=== PATIENT | female | born 1965 | race African-American/Black ===

== ENCOUNTER 2021-03-16 | Emergency (ER) | payer OTHER, BC | END 2021-03-16 14:50 | disposition home or self-care (01) | DRG 556 | DX: M79.672 Pain in left foot (principal); W51.XXXA Accidental striking against or bumped into by another person, initial encounter; Y92.89 Other specified places as the place of occurrence of the external cause; Y99.0 Civilian activity done for income or pay ==

== ENCOUNTER 2023-04-18 19:47 | Emergency (ER) | payer BC ==
[2023-04-18] VITALS (8 sets, daily range): BP systolic 142–180; BP diastolic 68–93
[~2023-04-18] VITALS: Ht 175.3 cm; Wt 327.0 kg
[2023-04-18 20:39] LABS: URINE BILIRUBIN - DIPSTICK NEGATIVE (NEGATIVE); URINE BLOOD DIPSTICK NEGATIVE (NEGATIVE); URINE COLOR YELLOW; URINE GLUCOSE - DIPSTICK NEGATIVE (NEGATIVE); URINE KETONE NEGATIVE (NEGATIVE); URINE LEUK ESTERASE NEGATIVE (NEGATIVE); URINE PROTEIN - DIPSTICK NEGATIVE (NEG-TRACE); URINE SPECIFIC GRAVITY <=1.005; URINE UROBILINOGEN - DIPSTICK 0.2 E.U./dL (0.2)
[2023-04-18 20:40] LABS: URINE NITRITE - DIPSTICK NEGATIVE (Negative)
[2023-04-18 21:20] LABS: BASO% 0.4 % (0-3); EOS% 4.3 % (0-8); IMMATURE GRANULOCYTES 0.1 % (0.0-5.0); LYMPH% 40.5 % (15-41); MEAN CORPUSCULAR HGB 28.3 pG CALC (26.0-32.0); MEAN CORPUSCULAR HGB CONC 31.6 g/dL CAL (32.0-36.0); MONO% 8.4 % (2-13); NEUT# 3.2 thou/uL (2.00-7.15); NEUT% 46.3 % (42-76); RED BLOOD COUNT 4.6 mill/uL (4.20-5.60); RED CELL DISTRI WIDTH 14.3 % (11.5-15.5)
[2023-04-18 21:24] LABS: HEMATOCRIT 41.2 % (37.0-47.0)
[2023-04-18 21:25] LABS: MEAN CELL VOLUME 89.6 fL CALC (80.0-100.0)
[2023-04-18 21:30] LABS: ALBUMIN 4.3 g/dL (3.2-5.0); ALKALINE PHOSPHATASE 94 u/l (38-126); ANION GAP 9 (6-22 (CALC)); BILIRUBIN, TOTAL 0.3 mg/dL (0.02-1.3); BUN 21 mg/dL (7-17); BUN/CREATININE RATIO 18 (12-20 (CALC)); CARBON DIOXIDE 31 mmol/l (22-30); CHLORIDE 105 mmol/l (95-108); CREATININE 1.2 mg/dL (0.5-1.0); GFR FOR AFR.AMER. 56 ML/MIN (>=60 (CALC)); GFR OTHER RACES 46 ML/MIN (>=60 (CALC)); POTASSIUM 4.5 mmol/l (3.5-5.1); SODIUM 140 mmol/l (137-146); TOTAL PROTEIN 8.1 g/dL (6.3-8.2)
[2023-04-18 21:32] LABS: SGOT/AST 46 u/l (14-36)
[2023-04-18] MEDS ORDERED: CLONIDINE0.1 MG PO (23:10)
[2023-04-19 01:06] VITALS: BP 121/57
== END 2023-04-18 23:30 | disposition home or self-care (01) | DRG 305 ==
LOC: ED 19:47
PROVIDERS: Emergency Medicine
DX: I10 Essential (primary) hypertension (principal)